=== PATIENT | male | born 1925 | race Caucasian/White ===

== ENCOUNTER 2017-01-14 13:32 | Emergency (ER) | payer BC, OTHER ==
[~2017-01-14] VITALS: Ht 177.8 cm; Wt 74.8 kg
[~2017-01-14 13:32] MED LIST: ACET-2605 PO; AMIO200T PO; BENZ-20 PO; IPRA12.9 IH; LEVO25TA11 PO; LEVO500T90 PO
[2017-01-14 13:52] LABS: BASOPHILS # (AUTO) 0.1 /CMM (0.0-0.2); BASOPHILS % (AUTO) 0.6 % (0.0-2.0); EOSINOPHILS # (AUTO) 0.1 /CMM (0.0-0.7); HEMATOCRIT 37 % (39-51); HEMOGLOBIN 12.6 g/dL (13.5-17.5); LYMPHOCYTES # (AUTO) 1.2 /CMM (0.8-4.8); LYMPHOCYTES % (AUTO) 12.8 % (20.0-44.0); MEAN CORPUSCULAR HEMOGLOBIN 34 PG (26.0-33.0); MEAN CORPUSCULAR HGB CONC 35 g/dl (31.0-36.0); MEAN CORPUSCULAR VOLUME 99 fL (80-96); MONOCYTES # (AUTO) 0.7 /CMM (0.1-1.30); MONOCYTES % (AUTO) 7.3 % (2.0-12.0); NEUTROPHILS # (AUTO) 7.2 /CMM (1.8-8.9); NEUTROPHILS % (AUTO) 78.3 % (43.0-81.0); PLATELET COUNT (AUTO) 227 /CMM (150-450); RDW COEFFICIENT OF VARIATION 12.6 (11.5-15.0); RED BLOOD CELL COUNT(AUTO) 3.68 MIL/uL (4.5-6.0); WHITE BLOOD COUNT (AUTO) 9.3 K/uL (4.3-11.0)
[2017-01-14 14:02] LABS: CALCIUM, SERUM 9.3 mg/dL (8.5-10.1); CREATININE 1.4 mg/dL (0.6-1.3); POTASSIUM 3.9 mmol/L (3.5-5.1)
[2017-01-14 14:04] LABS: INR 1.02 (0.87-1.13); PROTHROMBIN TIME 10.6 SECS (9.5-12.7)
[2017-01-14] MEDS ORDERED: IOHEXOL-300 100 ML VIAL IV ONE (14:28)
[2017-01-14] MEDS ORDERED: IV NS 0.9% 250 ML IV ONE (14:28)
[2017-01-14] MEDS ORDERED: CT SWABBABLE VALVE TRANS SET 1 EA INFUS.SET MC ONE (14:28)
[2017-01-14] MEDS ORDERED: IV SET PRIMARY 1 EA INFUS.SET MC ONE (14:46)
[2017-01-14] MEDS ORDERED: IV NS 0.9% 500 ML IV ONE (14:46)
[2017-01-14] MEDS: IV NS 0.9% 500 ML BAG IV ONE (14:53)
[2017-01-14] MEDS ORDERED: ACETAMINOPHEN ES 500 MG TABLET ONE (16:22)
[2017-01-14] MEDS: ACETAMINOPHEN ES 500 MG TABLET PO ONE (16:25)
[2017-01-14 16:28] VITALS: BP 136/71
== END 2017-01-14 16:28 | disposition home or self-care (01) ==
LOC: ER 13:33
DX: S30.811A Abrasion of abdominal wall, initial encounter (principal); N28.9 Disorder of kidney and ureter, unspecified; I10 Essential (primary) hypertension; E03.9 Hypothyroidism, unspecified; V49.40XA Driver injured in collision with unspecified motor vehicles in traffic accident, initial encounter; Y93.89 Activity, other specified; Y92.413 State road as the place of occurrence of the external cause; Y99.8 Other external cause status
CPT/HCPCS: 36415; 71260-TC; 72193-TC; 74160-TC; 80048-TC; 85025-TC; 85730-TC; A4606; J7040; J7050; Q9967; Z7610